=== PATIENT | male | born 1985 | race Caucasian/White ===

== ENCOUNTER 2018-10-01 15:34 | Emergency (ER) | payer BC ==
[2018-10-01 16:07] VITALS: BP 144/71
--- NOTE | 2018-10-01 16:21 | UC ---
Complaint Male HPI - HPI Summary HPI Summary: 33 yo male presents with burning with urination. He tells me that yesterday he noticed some burning at the tip of his penis during urination only. Today it feels a bit better. He is concerned because his girlfriend recently cheated on him and is wondering if he has a UTI or an STD. He has not noticed any rashes, lesions, hematuria, penile discharge. Denies fever, groin pain, or testicular pain. - History of Current Complaint Chief Complaint: UCGU Stated Complaint: POSS.UTI Hx Obtained From: Patient Onset/Duration: Sudden Onset Severity Initially: Moderate Severity Currently: Moderate Pain Intensity: 5 Pain Scale Used: 0-10 Numeric - Allergies/Home Medications Allergies/Adverse Reactions: Allergies Allergy/AdvReac Type Severity Reaction Status Date / Time No Known Allergies Allergy Verified 10/01/18 16:07 Home Medications: Home Medications NK [No Home Medications Reported] 10/01/18 [History Confirmed 10/01/18] PMH/Surg Hx/FS Hx/Imm Hx - Additional Past Medical History Additional PMH: None - Surgical History Surgical History: Yes Surgery Procedure, Year, and Place: BONE SPUR LEFT KNEE - Family History Known Family History: Positive: None - Social History Lives: With Family Alcohol Use: Rare Substance Use Type: Marijuana Substance Use Comment - Amount & Last Used: daily Smoking Status (MU): Heavy Every Day Tobacco Smoker Type: Cigarettes Amount Used/How Often: 1/2 PPD Length of Time of Smoking/Using Tobacco: 6 YEARS Have You Smoked in the Last Year: Yes Review of Systems All Other Systems Reviewed And Are Negative: Yes Constitutional: Positive: Negative Skin: Positive: Negative Respiratory: Positive: Negative Cardiovascular: Positive: Negative Gastrointestinal: Positive: Negative Genitourinary: Positive: Vaginal/Penile Burning Neurological: Positive: Negative Psychological: Positive: Negative Physical Exam - Summary Physical Exam Summary: GENERAL: NAD. WDWN. No pain distress. SKIN: No lesions, open sores, or rashes. NECK: Supple. Nontender. No lymphadenopathy. CHEST: No accessory muscle use. Breathing comfortably and in no distress. CV: Pulses intact. Cap refill <2seconds NEURO: Alert. PSYCH: Age appropriate behavior. Triage Information Reviewed: Yes Vital Signs: Initial Vital Signs Temp 98.4 F 10/01/18 16:04 Pulse 76 10/01/18 16:04 Resp 18 01/29/19 16:04 BP 144/71 10/01/18 16:04 Pulse Ox 100 10/01/18 16:04 Laboratory Tests 10/01/18 16:15 POC Urine Color Yellow POC Urine Clarity Clear POC Urine pH 8.0 POC Ur Specif [place] 1.020 POC Urine Protein Negative POC Ur Glucose (UA) Negative POC Urine Ketones Negative POC Urine Blood Negative POC Urine Nitrite Negative POC Urine Bilirubin Negative POC Urine Urobilinogen 0.2 POC U Leukocyte Esteras Negative Vital Signs Reviewed: Yes Male Genital Exam: Positive: Normal Genitalia. Negative: No Hernia, Epididymal Tenderness, Erythema, Inguinal Tenderness, Lesions, Scrotum Tenderness (R), Scrotum Tenderness (L), Testicular Tenderness (R), Testicular Tenderness (L), Urethral Discharge Complaint Male Course/Dx - Course Course Of Treatment: UA negative. Will send for GC/C and draw labs for STD panel. Pt declines treatment today and will wait for results. - Differential Dx/Diagnosis Provider Diagnosis: Burning with urination Discharge - Sign-Out/Discharge Documenting (check all that apply): Patient Departure All imaging exams completed and their final reports reviewed: No Studies - Discharge Plan Condition: Stable Disposition: HOME Patient Education Materials: Dysuria (ED) Referrals: No Primary Care Phys,NOPCP [Primary Care Provider] - Additional Instructions: If you develop a fever, shortness of breath, chest pain, new or worsening symptoms - please call your PCP or go to the ED. Your blood pressure was high at todays visit. Please see your primary provider within 4 weeks for recheck and re-evaluation. We should have results in 2-3 days. You were not treated for any infection today. - Billing Disposition and Condition Condition: STABLE Disposition: Home - Attestation Statements Provider Attestation: I was available for consult. This patient was seen by the GAUR[facility]. The patient was not presented to, seen by, or examined by me. -Medardo
[2018-10-02 11:29] LABS: Hepatitis B Surface Antigen Nonreactive (Nonreactive)
[2018-10-02 11:50] LABS: Hepatitis C Antibody Nonreactive (Nonreactive)
[2018-10-02 12:51] LABS: Neisseria gonorrhoeae (GC) RNA Negative (Negative)
[2018-10-03 13:14] LABS: Herpes Simplex Virus I IgG AB Positive (Negative); Herpes Simplex Virus II IgG AB Positive (Negative)
--- NOTE | 2018-10-03 15:44 | UC ---
- Progress Note Progress Note: Patient seen here in clinic on October 01, 2018. 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 Nursing to call patient and let him know of the positive HSV-1 and HSV-2. Because it's the IgG that is positive this is from an old infection and not a new infection. If the patient has any outbreaks with either oral or genital sores he can be treated acutely. Let the patient know to follow-up his primary care physician or return here or [facility] if he has any outbreaks. Course/Dx - Diagnoses Provider Diagnoses: Burning with urination Discharge - Sign-Out/Discharge Documenting (check all that apply): Patient Departure All imaging exams completed and their final reports reviewed: No Studies - Discharge Plan Condition: Stable Disposition: HOME Patient Education Materials: Dysuria (ED) Referrals: No Primary Care Phys,NOPCP [Primary Care Provider] - Additional Instructions: If you develop a fever, shortness of breath, chest pain, new or worsening symptoms - please call your PCP or go to the ED. Your blood pressure was high at todays visit. Please see your primary provider within 4 weeks for recheck and re-evaluation. We should have results in 2-3 days. You were not treated for any infection today. - Billing Disposition and Condition Condition: STABLE Disposition: Home
== END 2018-10-01 16:50 | disposition home or self-care (01) ==
LOC: UCEAST 15:34
DX: R30.0 Dysuria (principal); F17.210 Nicotine dependence, cigarettes, uncomplicated
CPT/HCPCS: 36415; 80074; 81003; 86592; 86695; 86696; 86703; 87086; 87491; 87591; 99211; G0463

== ENCOUNTER 2019-03-24 12:13 | Emergency (ER) | payer BC ==
[2019-03-24 12:22] VITALS: BP 125/78
--- NOTE | 2019-03-24 13:23 | UC ---
General HPI - HPI Summary HPI Summary: 33-year-old male comes in with a chief complaint of numbness of the left side of his head. This started 4 days ago. He does wear a hard hat at work Sunday through Sunday. He believed the numbness was due to wearing a hardhat. Is the same hardhat is been wearing for a long time. The numbness started on and over the weekend Sunday and Sunday he did not wear the hardhat and the numbness is not gone away. Is also describing a pressure behind the left eye. Also describing feeling off balance for about one week. It was worse last week. He does have some discomfort in the left ear. Denies any upper respiratory tract infection symptoms. Also last week he experienced about 20 minutes of numbness in the left index finger. He had injured that finger the day before. The numbness occurred one day after the injury. Denies any change in vision or speech. Denies any arm or leg weakness. No history of migraines or strokes. - History of Current Complaint Chief Complaint: UCHeadache Stated Complaint: SIDE OF HEAD NUMB Time Seen by Provider: 03/24/19 12:51 Pain Intensity: 2 - Allergy/Home Medications Allergies/Adverse Reactions: Allergies Allergy/AdvReac Type Severity Reaction Status Date / Time No Known Allergies Allergy Verified 03/24/19 12:23 PMH/Surg Hx/FS Hx/Imm Hx Previously Healthy: Yes - Surgical History Surgical History: Yes Surgery Procedure, Year, and Place: BONE SPUR LEFT KNEE - Family History Known Family History: Positive: None - Social History Alcohol Use: None Substance Use Type: Marijuana Substance Use Comment - Amount & Last Used: daily Smoking Status (MU): Heavy Every Day Tobacco Smoker Type: Cigarettes Amount Used/How Often: 1/2 PPD Length of Time of Smoking/Using Tobacco: 6 YEARS Have You Smoked in the Last Year: Yes Review of Systems All Other Systems Reviewed And Are Negative: Yes Constitutional: Positive: Negative Skin: Positive: Negative Eyes: Positive: Negative ENT: Positive: Other - SEE HPI Respiratory: Positive: Negative Cardiovascular: Positive: Negative Gastrointestinal: Positive: Negative Motor: Positive: Negative Neurovascular: Positive: Other - SEE HPI Musculoskeletal: Positive: Negative Neurological: Positive: Other - SEE HPI Psychological: Positive: Negative Is Patient Immunocompromised?: No Physical Exam Triage Information Reviewed: Yes Appearance: Well-Appearing, No Pain Distress, Well-Nourished Vital Signs: Initial Vital Signs Temp 97.2 F 03/24/19 12:20 Pulse 60 03/24/19 12:20 Resp 18 03/24/19 12:20 BP 125/78 03/24/19 12:20 Pulse Ox 100 03/24/19 12:20 Vital Signs Reviewed: Yes Eye Exam: Normal Eyes: Positive: Conjunctiva Clear, Other: - PERRLA/EOMI, NO VISUAL FIELD DEFICITS. NO NYSTAGMUS ENT: Positive: Pharynx normal, TMs normal, Other - NO TRAGUS TENDERNESS Neck: Positive: Supple Respiratory: Positive: Lungs clear, Normal breath sounds, No respiratory distress Cardiovascular: Positive: RRR Musculoskeletal: Positive: Strength Intact, ROM Intact Neurological: Positive: Other: - Patient describes decreased sensation on the left side of the head in the left temporal and parietal distribution to include the left upper cheek. No nystagmus. Normal finger-nose normal [id number]. No focal weakness found on exam. Psychological: Positive: Age Appropriate Behavior Skin Exam: Normal Course/Dx - Course Course Of Treatment: I discussed the case with the neurologist on-call Dr. Steinberg who recommended an MRI with and without contrast. I am unable to obtain that study here and therefore I recommended further evaluation in the emergency department. Patient preferred to go by POV. - Diagnoses Provider Diagnosis: Paresthesia, Balance problem, Headache Discharge - Sign-Out/Discharge Documenting (check all that apply): Patient Departure All imaging exams completed and their final reports reviewed: No Studies - Discharge Plan Condition: Stable Disposition: HOME-RECOMMEND TO ED Referrals: [facility] [Outside] Additional Instructions: GO DIRECTLY TO THE EMERGENCY DEPARTMENT FOR FURTHER EVALUATION OF YOUR NUMBNESS , DIFFICULTY WITH BALANCE AND HEADACHE. DR STEINBERG, THE NEUROLOGIST [employer] OPERATOR, RECOMMENDED A BRAIN MRI WITH AND WITHOUT CONTRAST. - Billing Disposition and Condition Condition: STABLE Disposition: Home-Recommend to ED
== END 2019-03-24 13:30 | disposition home health service (06) ==
LOC: UCEAST 12:13
DX: R20.2 Paresthesia of skin (principal); R26.9 Unspecified abnormalities of gait and mobility; R51 Headache; F17.210 Nicotine dependence, cigarettes, uncomplicated
CPT/HCPCS: 99212; G0463

== ENCOUNTER 2019-03-24 14:12 | Emergency (ER) | payer BC ==
[2019-03-24 15:08] LABS: ABS Eosinophils 0.3 10^3/ul (0-0.6); ABS Lymphocytes 1.8 10^3/ul (1.0-4.8); ABS Monocytes 0.7 10^3/ul (0-0.8); ABS Neutrophils 5.6 10^3/ul (1.5-7.7); Eosinophil % 3.1 %; Hematocrit 45 % (42-52); Hemoglobin 15.5 g/dL (14.0-18.0); Lymphocyte % 21.3 %; Mean Corpuscular HGB Conc 34 g/dL (31-36); Mean Corpuscular Hemoglobin 32 pg (27-31); Mean Corpuscular Volume 93 fL (80-94); Mean Platelet Volume 8.5 fL (7.4-10.4); Nucleated Red Blood Cells % 0.1; Platelet Count 243 10^3/uL (150-450); Red Blood Count 4.82 10^6 /uL (4.18-5.48); Red Cell Distribution Width 13 % (10-15); White Blood Count 8.4 10^3/uL (3.5-10.8)
[2019-03-24 15:45] LABS: Albumin 4.8 g/dL (3.2-5.2); Albumin/Globulin Ratio 1.7 (1-3); Calcium 9.9 mg/dL (8.6-10.3); EGFR African American 126.4 (>60); EGFR Non-African American 104.5 (>60); Globulin 2.9 g/dL (2-4); Potassium 4.2 mmol/L (3.5-5.0); Total Bilirubin 0.5 mg/dL (0.2-1.0); Total Protein 7.7 g/dL (6.4-8.9)
--- NOTE | 2019-03-24 17:15 | ED ---
Headache - HPI Summary HPI Summary: This pt is a 33 y/o male presenting to [facility] referred by [facility] c/o numbness to the left side of his face and head for a couple of days now. Pt reports numbness starts at the left side of the top of his head and radiates down to just the jaw line. Yesterday he states he was able to feel it more down to his left eye, behind his left eye, and back of his left ear. He also notes it is tender to touch. Denies any other symptoms. Denies any trauma or injury. Pt states he was off balance earlier in the week but also notes he was on a ladder, which pt reports has resolved since then. - History Of Current Complaint Chief Complaint: EDHeadache Stated Complaint: paresthesia balance problems, headache from cc Time Seen by Provider: 03/24/19 16:26 Hx Obtained From: Patient Onset/Duration: Started days ago, Still Present Currently Pain Is: Moderate - 4 Timing: Days Location of Headache: Other: - left side of face Aggravating Factor: Nothing Allevating Factors: Nothing Associated Signs And Symptoms: Other (Noted In Comments) - POSITIVE: headache, numbness - Allergies/Home Medications Allergies/Adverse Reactions: Allergies Allergy/AdvReac Type Severity Reaction Status Date / Time No Known Allergies Allergy Verified 03/24/19 12:23 PMH/Surg Hx/FS Hx/Imm Hx Endocrine/Hematology History: Denies: Hx Diabetes Cardiovascular History: Denies: Hx Hypertension - Surgical History Surgery Procedure, Year, and Place: BONE SPUR LEFT KNEE Infectious Disease History: No Infectious Disease History: Denies: History Other Infectious Disease, Traveled Outside the [place] in Last 30 Days - Family History Family History: mother with Hodgkins - Social History Alcohol Use: None Substance Use Type: Reports: Marijuana Substance Use Comment - Amount & Last Used: daily Smoking Status (MU): Heavy Every Day Tobacco Smoker Type: Cigarettes Amount Used/How Often: 1/2 PPD Length of Time of Smoking/Using Tobacco: 6 YEARS Have You Smoked in the Last Year: Yes Review of Systems Negative: Fever, Chills ENT: Other - POSITIVE: left sided facial pain Cardiovascular: Negative Respiratory: Negative Gastrointestinal: Negative Positive: Headache, Paresthesia, Numbness All Other Systems Reviewed And Are Negative: Yes Physical Exam - Summary Physical Exam Summary: Constitutional: Well-developed, Well-nourished, Alert. (-) Distressed Skin: Warm, Dry HENT: Normocephalic; Atraumatic. Numbness on the V1 and V2 distribution of the head. V3 is not affected. Eyes: Conjunctiva normal Neck: Musculoskeletal ROM normal neck. (-) JVD, (-) Stridor, (-) Tracheal deviation Cardio: Rhythm regular, rate normal, Heart sounds normal; Intact distal pulses; The pedal pulses are 2+ and symmetric. Radial pulses are 2+ and symmetric. (-) Murmur Pulmonary/Chest wall: Effort normal. (-) Respiratory distress, (-) Wheezes, (-) Rales Abd: Soft, (-) tenderness, (-) Distension, (-) Guarding, (-) Rebound Musculoskeletal: (-) Edema Lymph: (-) Cervical adenopathy Neuro: Alert, Oriented x3 Psych: Mood and affect Normal Triage Information Reviewed: Yes Vital Signs On Initial Exam: Initial Vitals Temp Pulse Resp BP Pulse Ox 98.1 F 64 18 131/69 98 03/24/19 14:14 03/24/19 14:14 03/24/19 14:14 03/24/19 14:14 03/24/19 14:14 Vital Signs Reviewed: Yes Diagnostics - Vital Signs Vital Signs Temp Pulse Resp BP Pulse Ox 03/24/19 17:01 68 16 110/67 98 03/24/19 16:03 97.8 F 64 18 127/78 99 03/24/19 14:14 98.1 F 64 18 131/69 98 - Laboratory Lab Results: Lab Results 03/24/19 03/24/19 03/24/19 Range/Units 15:02 15:02 15:02 WBC 8.4 (3.5-10.8) 10^3/uL RBC 4.82 (4.18-5.48) 10^6 /uL Hgb 15.5 (14.0-18.0) g/dL Hct 45 (42-52) % MCV 93 (80-94) fL MCH 32 H (27-31) pg MCHC 34 (31-36) g/dL RDW 13 (10-15) % Plt Count 243 (150-450) 10^3/uL MPV 8.5 (7.4-10.4) fL Neut % (Auto) 67.2 % Lymph % (Auto) 21.3 % [place] % (Auto) 7.9 % Eos % (Auto) 3.1 % Baso % (Auto) 0.5 % Absolute Neuts (auto) 5.6 (1.5-7.7) 10^3/ul Absolute Lymphs (auto) 1.8 (1.0-4.8) 10^3/ul Absolute Monos (auto) 0.7 (0-0.8) 10^3/ul Absolute Eos (auto) 0.3 (0-0.6) 10^3/ul Absolute Basos (auto) 0.0 (0-0.2) 10^3/ul Absolute Nucleated RBC 0.0 10^3/ul Nucleated RBC % 0.1 Sodium 140 (135-145) mmol/L Potassium 4.2 (3.5-5.0) mmol/L Chloride 103 (101-111) mmol/L Carbon Dioxide 31 (22-32) mmol/L Anion Gap 6 (2-11) mmol/L BUN 17 (6-24) mg/dL Creatinine 0.85 (0.67-1.17) mg/dL Est GFR ( Amer) 126.4 (>60) Est GFR (Non-Af Amer) 104.5 (>60) BUN/Creatinine Ratio 20.0 (8-20) Glucose 120 H (70-100) mg/dL Calcium 9.9 (8.6-10.3) mg/dL Magnesium 2.0 (1.9-2.7) mg/dL Total Bilirubin 0.50 (0.2-1.0) mg/dL AST 17 (13-39) U/L ALT 18 (7-52) U/L Alkaline Phosphatase 58 (34-104) U/L Total Protein 7.7 (6.4-8.9) g/dL Albumin 4.8 (3.2-5.2) g/dL Globulin 2.9 (2-4) g/dL Albumin/Globulin Ratio 1.7 (1-3) Result Diagrams: 03/24/19 15:02 03/24/19 15:02 Lab Statement: Any lab studies that have been ordered have been reviewed, and results considered in the medical decision making process. Headache Course/Dx - Course Assessment/Plan: Pt is a 33 y/o male presenting to [facility] referred by [facility] c/o numbness to the left side of his face and head for a couple of days now. Pt reports numbness starts at the left side of the top of his head and radiates down to just the jaw line. He also notes it is tender to touch. Denies any other symptoms. Denies any trauma or injury. Discussed the case with Dr. Steinberg , neurologist, who is aware of patient from Urgent Care and recommends brain MRI. Brain MRI was ordered. Patient is refusing to have the mandatory xrays done therefore unable to get MRI. I explained to the patient at length the benefits of an MRI. I also explained that Dr. Steinberg, neurologist, reported pt could also have the MRI as an outpatient. Pt would rather have MRI as an outpatient. Therefore he will be discharged home with follow up from [facility] and Dr. Steinberg. - Diagnoses Provider Diagnoses: Headache - Physician Notifications Discussed Care Of Patient With: Bill Steinberg Time Discussed With Above Provider: 17:19 Instructed by Provider To: Other - Discussed with Dr. Steinberg, neurologist, who is aware of patient from Urgent Care and recommended MRI. Discharge - Sign-Out/Discharge Documenting (check all that apply): Patient Departure - discharge home Patient Received Moderate/Deep Sedation with Procedure: No - Discharge Plan Condition: Stable Disposition: HOME Patient Education Materials: Acute Headache (ED) Print Language: JAPANESE Referrals: [facility] [Outside] Bill Steinberg MD [Medical Doctor] - No Primary Care Phys,NOPCP [Primary Care Provider] - - Billing Disposition and Condition Condition: STABLE Disposition: Home - Attestation Statements Document Initiated by Malu: Yes Documenting Scribe: Hiral Martines Provider For Whom Malu is Documenting (Include Credential): Rea Mcdaniel MD Scribe Attestation: Hiral Christina, scribed for Rea Story MD on 03/24/19 at 1920. Scribe Documentation Reviewed: Yes Provider Attestation: The documentation as recorded by the Hiral israel accurately reflects the service I personally performed and the decisions made by me, Rea Story MD Status of Scribe Document: Viewed
[2019-03-24 19:21] VITALS: BP 114/66
== END 2019-03-24 19:20 | disposition home or self-care (01) ==
LOC: ED 14:12
DX: R51 Headache (principal); F17.210 Nicotine dependence, cigarettes, uncomplicated
CPT/HCPCS: 36415; 80053; 83735; 85025; 99282

== ENCOUNTER 2019-06-02 09:04 | Emergency (ER) | payer BC ==
--- OUTSIDE RECORDS SUMMARY | 2019-06-02 09:15 | XMS REPORT | Continuity of Care Document ---
:1985 External Reference #:[id number] Author Name [facility] Care Team Providers Name Role Phone Ty Swanson MD Primary Care Physician Unavailable Payers Date Identification Numbers Payment Provider Subscriber Policy Number: [id number] [employer] Conor Perez Group Number: [id number] [address] PayID: [place] [id number] Expires: 2015 Policy Number: [id number] [employer] Conor Perez Group Number: [id number] [address] PayID: [employer] [place] [address] Effective: 2013 Policy Number: [facility] Conor Perez [employer]MENT [employer]ICAL Expires: [address] [place] [address] Family History Date Family Member(s) Observation Comments General No Current Problems Social History Type Date Description Comments Sex Unknown Lives With Girlfriend ETOH Use Denies alcohol use Tobacco Use Start: Unknown Heavy tobacco smoker (more than 10 cigarettes/day) Smoking Status Reviewed: 04/07/19 Heavy tobacco smoker (more than 10 cigarettes/day) Allergies, Adverse Reactions, Alerts Description No Known Drug Allergies Medications Description No Active Medications Vital Signs Date Vital Result Comment 04/07/2019 10:50am Height 65 inches 5'5" Weight 128.00 lb Heart Rate 72 /min BP Systolic Sitting 118 mmHg BP Diastolic Sitting 78 mmHg Respiratory Rate 18 /min BMI (Body Mass Index) 21.3 kg/m2 12/23/2015 1:38pm Height 65 inches 5'5" Weight 125.00 lb Heart Rate 68 /min BP Systolic Sitting 116 mmHg BP Diastolic Sitting 64 mmHg Respiratory Rate 16 /min Pain Level 4 BMI (Body Mass Index) 20.8 kg/m2 Encounters Type Date Location Provider Dx Diagnosis Office Visit 12/23/2015 [facility] S52.515A Nondisp fx of left 1:30p Services Of Deborah Valverde M.D. radial styloid process, init for clos fx Office Visit 05/23/2013 [facility] V70.5 Examination Health 3:47p [facility] Subpopulations Plan of Treatment 04/07/2019 - Rasheed Paz M.D.R20.0 Anesthesia of skinNew Xrays:MRI Brain W /O, Ordered: 04/07/19
--- NOTE | 2019-06-02 09:55 | ED ---
Complex/Multi-Sys Presentation - HPI Summary HPI Summary: Patient is a 33 y/o M presenting to [facility] with complaints of left sided TORRES and spitting up blood. He notes that he was seen at [facility] two months ago for numbness of the left side of his head. Patient was discharged and instructed to follow up with neurologist. He was evaluated by Dr. Steinberg in office, he states that he was told that his sensation appeared normal and outpatient MRI would be scheduled. He states that he had not received any information about MRI being scheduled, decided to call about it last week. Patient reports he is scheduled for MRI tomorrow. He states that he went skydiving last week. At around 1000 feet, he had sudden onset of left-sided, frontal TORRES. TORRES has been consistent since onset, he characterizes pain as a pressure. Patient additionally describes a cracking sensation in his sinuses. He denies trauma. No Hx of dental issues, TORRES, migraines noted. Patient has not been taking medications for Sx. 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 Blood is characterized as dark red, and he notes that he produced "a good amount". Patient states that he produces spotty blood when he blows his nose. He denies rash and pruritus behind his ears. He is unaware of any Hx of allergies or sinus issues. Patient does not report any fever, chills, erythema of eyes, sore throat, CP, SOB, cough, abdominal pain, N/ V, dysuria, hematuria, myalgia, edema, and dizziness. On triage, pain is rated 4 /10, nothing is noted to aggravate Sx, nothing is noted to alleviate Sx. Home medications and allergies are reviewed. - History Of Current Complaint Chief Complaint: EDGeneral Time Seen by Provider: 06/02/19 09:39 Hx Obtained From: Patient Onset/Duration: Sudden Onset, Lasting Days, Still Present Timing: Constant Severity Currently: Moderate Location: Pain At: - head Character: Pressure Aggravating Factor(s): nothing Alleviating Factor(s): nothing Associated Signs And Symptoms: Positive: Headache, Diaphoresis, Other - does not report any fever, chills, erythema of eyes, sore throat, CP, SOB, cough, abdominal pain, N/V, dysuria, hematuria, myalgia, edema, and dizziness; negative pruritus behind ears and rash; positive spitting up blood and epistaxis. Negative: Dizziness, SOB, Cough, Chest Pain, Edema, Nausea, Vomiting , Abdominal Pain, Dysuria, Fever - Allergies/Home Medications Allergies/Adverse Reactions: Allergies Allergy/AdvReac Type Severity Reaction Status Date / Time No Known Allergies Allergy Verified 03/24/19 12:23 PMH/Surg Hx/FS Hx/Imm Hx Endocrine/Hematology History: Denies: Hx Diabetes Cardiovascular History: Denies: Hx Hypertension, Hx Pacemaker/ICD History: Denies: Hx Dialysis, Hx Renal Disease Sensory History: Denies: Hx Hearing Aid Psychiatric History: Denies: Hx Panic Disorder - Surgical History Surgery Procedure, Year, and Place: BONE SPUR LEFT KNEE Infectious Disease History: No Infectious Disease History: Denies: History Other Infectious Disease, Traveled Outside the [place] in Last 30 Days - Family History Known Family History: Positive: Other - mother with Hodgkins Family History: mother with Hodgkins - Social History Alcohol Use: None Substance Use Type: Reports: Marijuana Substance Use Comment - Amount & Last Used: daily Smoking Status (MU): Heavy Every Day Tobacco Smoker Type: Cigarettes Amount Used/How Often: 1/2 PPD Length of Time of Smoking/Using Tobacco: 6 YEARS Have You Smoked in the Last Year: Yes Review of Systems Positive: Skin Diaphoresis. Negative: Fever, Chills Negative: Erythema ENT: Other - spitting up blood Positive: Epistaxis - when blowing nose, spotty blood Negative: Chest Pain Negative: Shortness Of Breath, Cough Negative: Abdominal Pain, Vomiting, Nausea Negative: dysuria, hematuria Negative: Myalgia, Edema Skin: Other - no pruritus Negative: Rash Neurological: Other - negative - dizziness Positive: Headache All Other Systems Reviewed And Are Negative: Yes Physical Exam - Summary Physical Exam Summary: Constitutional: Well-developed, Well-nourished, Alert. (-) Distressed Skin: Warm, Dry HENT: Patient has left frontal sinus tenderness. Otherwise, Normocephalic; Atraumatic, no mastoid tenderness Eyes: Conjunctiva normal Neck: Musculoskeletal ROM normal neck. (-) JVD, (-) Stridor, (-) Tracheal deviation Cardio: Rhythm regular, rate normal, Heart sounds normal; Intact distal pulses; The pedal pulses are 2+ and symmetric. Radial pulses are 2+ and symmetric. (-) Murmur Pulmonary/Chest wall: Effort normal. (-) Respiratory distress, (-) Wheezes, (-) Rales Abd: Soft, (-) tenderness, (-) Distension, (-) Guarding, (-) Rebound Musculoskeletal: (-) Edema Lymph: (-) Cervical adenopathy Neuro: Alert, Oriented x3, Strength normal, Cranial nerves II-XII are grossly intact. (-) Dysmetria, (-) Nystagmus, (-) Ataxia by finger to nose testing, (-) Sensory deficit. GCS 15. Psych: Mood and affect Normal Triage Information Reviewed: Yes Vital Signs On Initial Exam: Initial Vitals Temp Pulse Resp BP Pulse Ox 98.7 F 78 14 149/75 99 06/02/19 09:07 06/02/19 09:07 06/02/19 09:07 06/02/19 09:07 06/02/19 09:07 Vital Signs Reviewed: Yes - Cat Coma Scale Best Eye Response: 4 - Spontaneous Best Motor Response: 6 - Obeys Commands Best Verbal Response: 5 - Oriented Coma Scale Total: 15 Diagnostics - Vital Signs Vital Signs Temp Pulse Resp BP Pulse Ox 06/02/19 09:07 98.7 F 78 14 149/75 99 - Laboratory Result Diagrams: 06/02/19 09:48 06/02/19 09:48 Lab Statement: Any lab studies that have been ordered have been reviewed, and results considered in the medical decision making process. - CT BRAIN CT CT Interpretation Completed By: Radiologist Summary of CT Findings: IMPRESSION: NO ACUTE INTRACRANIAL PATHOLOGY. MODERATE SINUS MUCOSAL INFLAMMATORY DISEASE, WITH AN AIR-FLUID LEVEL IN THE RIGHT. MAXILLARY SINUS. IN THE CORRECT CLINICAL SETTING, THIS MAY REPRESENT ACUTE SINUSITIS. THIS REPORT WAS REVIEWED BY DR. DAMON. Re-Evaluation - Re-Evaluation First Eval Re-Evaluation Time: 11:11 Comment: Results of bloodwork and CT were discussed with the patient. He was advised to follow up with PCP and to keep his scheduled MRI for tomorrow. Patient is agreeable with discharge to home and plan as discussed. Complex Multi-Symp Course/Dx Course Of Treatment: Patient is a 33 y/o M presenting to [facility] with complaints of left sided TORRES and spitting up blood. Patient has left frontal sinus tenderness. Otherwise, Normocephalic; Atraumatic, no mastoid tenderness. He is neurologically intact, GCS 15. Bloodwork was obtained. Abnormal values include MCH 33, BUN/creatinine ratio 23.5. BRAIN CT IMPRESSION: NO ACUTE INTRACRANIAL PATHOLOGY. MODERATE SINUS MUCOSAL INFLAMMATORY DISEASE, WITH AN AIR-FLUID LEVEL IN THE RIGHT. MAXILLARY SINUS. IN THE CORRECT CLINICAL SETTING, THIS MAY REPRESENT ACUTE SINUSITIS. Results of bloodwork and CT were discussed with the patient. He was advised to follow up with PCP and to keep his scheduled MRI for tomorrow. Patient is agreeable with discharge to home and plan as discussed. He was prescribed Clindamycin as well. - Diagnoses Provider Diagnoses: Left-sided headache, Sinusitis Discharge ED - Sign-Out/Discharge Documenting (check all that apply): Patient Departure - discharge Patient Received Moderate/Deep Sedation with Procedure: No - Discharge Plan Condition: Stable Disposition: HOME Prescriptions: Clindamycin HCl 300 mg PO QID #21 capsule predniSONE TAB* [Deltasone TAB*] 50 mg PO DAILY #4 tab Patient Education Materials: Sinusitis (ED), General Headache (ED) Referrals: Sachin Francisco MD [Primary Care Provider] - 3 Days Additional Instructions: KEEP YOUR SCHEDULED MRI APPOINTMENT FOR TOMORROW. PLEASE RETURN TO ED FOR ANY NEW OR WORSENING SYMPTOMS. PLEASE FOLLOW UP WITH YOUR PRIMARY CARE PHYSICIAN IN 2-3 DAYS. - Attestation Statements Document Initiated by Scribe: Yes Documenting Scribe: ANNITA HARTMAN Provider For Whom Malu is Documenting (Include Credential): IKE DAMON MD Scribe Attestation: ANNITA Christina, scribed for IKE DAMON MD on 06/02/19 at 1245. Status of Scribe Document: Ready
[2019-06-02 09:58] LABS: ABS Eosinophils 0.4 10^3/ul (0-0.6); ABS Lymphocytes 1.8 10^3/ul (1.0-4.8); ABS Monocytes 0.7 10^3/ul (0-0.8); ABS Neutrophils 3.1 10^3/ul (1.5-7.7); Eosinophil % 6.5 %; Hematocrit 44 % (42-52); Hemoglobin 15.3 g/dL (14.0-18.0); Lymphocyte % 29.9 %; Mean Corpuscular HGB Conc 35 g/dL (31-36); Mean Corpuscular Hemoglobin 33 pg (27-31); Mean Corpuscular Volume 93 fL (80-94); Mean Platelet Volume 8.3 fL (7.4-10.4); Platelet Count 222 10^3/uL (150-450); Red Blood Count 4.68 10^6 /uL (4.18-5.48); Red Cell Distribution Width 13 % (10-15); White Blood Count 6.1 10^3/uL (3.5-10.8)
[2019-06-02 10:05] LABS: Activated Partial Thrombo Time 36.5 seconds (26.0-38.0); INR 1.02 (0.82-1.09)
[2019-06-02 10:15] LABS: Albumin 4.6 g/dL (3.2-5.2); Albumin/Globulin Ratio 1.9 (1-3); BUN/Creatinine Ratio 23.5 (8-20); Calcium 9.4 mg/dL (8.6-10.3); EGFR African American 133.6 (>60); EGFR Non-African American 110.4 (>60); Globulin 2.4 g/dL (2-4); Potassium 4.2 mmol/L (3.5-5.0); Total Bilirubin 0.5 mg/dL (0.2-1.0)
[2019-06-02 11:36] VITALS: BP 114/72
== END 2019-06-02 11:30 | disposition home or self-care (01) ==
LOC: ED 09:04
DX: R51 Headache (principal); J32.9 Chronic sinusitis, unspecified; R04.2 Hemoptysis; R61 Generalized hyperhidrosis; F17.210 Nicotine dependence, cigarettes, uncomplicated
CPT/HCPCS: 36415; 70450; 80053; 85025; 85610; 85730; 99283